=== PATIENT | female | born 1965 | race Caucasian/White ===

== ENCOUNTER 2016-06-22 16:49 | Emergency (ER) | payer OTHER ==
[2016-06-22 17:30] VITALS: BP 171/98
--- NOTE | 2016-06-22 19:09 | RAD ---
INDICATION: Back pain COMPARISON: None TECHNIQUE: Routine 2 view imaging was performed FINDINGS: Bones: There are no acute bony findings. There are no significant osteoarthritic findings. Alignment: There is moderate kyphosis Disc spaces: The disc spaces are well-maintained Soft tissues: There are no soft tissue abnormalities. IMPRESSION: NO ACUTE BONY FINDINGS.
--- NOTE | 2016-06-22 19:10 | RAD ---
INDICATION: Neck pain. Injury. COMPARISON: None TECHNIQUE: Routine five-view imaging was performed FINDINGS: Bones: There are no acute bony findings. There are no significant osteoarthritic findings. Craniocervical junction: The odontoid and atlantodental interval are normal. Alignment: Normal Disc spaces: The disc spaces are well-maintained Soft tissues: The prevertebral soft tissues are normal. IMPRESSION: NEGATIVE EXAMINATION.
--- NOTE | 2016-06-22 19:11 | RAD ---
INDICATION: Back pain. Injury. COMPARISON: None TECHNIQUE: Routine PA, lateral, and oblique imaging was performed . FINDINGS: Bones: There are no acute bony findings. There are arthritic changes consisting of endplate sclerosis and marginal osteophyte formation about the lower 3 lumbar levels. Alignment: There is lumbar spine straightening Disc spaces: Minor narrowing L4-L5. The remaining disc spaces are well-maintained. Soft tissues: There are no soft tissue abnormalities. IMPRESSION: MINOR OSTEOARTHRITIC CHANGE. NO ACUTE FINDINGS.
--- NOTE | 2016-08-05 09:19 | UC ---
Gordo Monk Matthew, scribed for Ashley Emery MD on 06/22/16 at 1755 . Shoulder Pain HPI - HPI Summary HPI Summary: A 51 y/o female presents to [facility] with left shoulder and back pain since a couple of hours ago. The pain is rated 5/10 in severity. The patient was riding a horse (approximately 4-5ft), when the stirrup broke and the patient rolled of off the horse landing on her left shoulder and back. She denies any head trauma or hematuria. The patient has full ROM of the shoulder. - History of Current Complaint Chief Complaint: UCBackPain Stated Complaint: FELL OFF HORSE Hx Obtained From: Patient Hx Last Menstrual Period: 01/15/12 ?: No Onset/Duration: Sudden Onset, Lasting Hours, Still Present Timing: Constant Severity Initially: Moderate Severity Currently: Moderate Location Of Pain: Is Discrete @ - LT shoulder and back Pain Intensity: 5 Pain Scale Used: 0-10 Numeric Associated Signs And Symptoms: Positive: Negative - Allergies/Home Medications Allergies/Adverse Reactions: Allergies Allergy/AdvReac Type Severity Reaction Status Date / Time Dust Mite Extract Allergy Intermediate Eyes Verified 02/07/12 08:23 Itchy/Swollen/Red/Watery Home Medications: Home Medications Ibuprofen [Advil] 200 mg PO 06/22/16 [History] PMH/Surg Hx/FS Hx/Imm Hx Endocrine History Of: Denies: Diabetes, Thyroid Disease Cardiovascular History Of: Denies: Cardiac Disorders, Hypertension Respiratory History Of: Denies: COPD, Asthma GI/ History Of: Denies: Ulcer - Surgical History Surgical History: Yes Surgery Procedure, Year, and Place: 08/19/00 - Tuabal ligation - Family History Known Family History: Positive: Cardiac Disease - Mother, Hypertension, Diabetes - Father - Social History Alcohol Use: None Substance Use Type: None Smoking Status (MU): Never Smoked Tobacco Review of Systems Constitutional: Negative Skin: Negative Eyes: Negative ENT: Negative Respiratory: Negative Cardiovascular: Negative Gastrointestinal: Negative Genitourinary: Negative Motor: Negative Neurovascular: Negative Musculoskeletal: Myalgia - Left shoulder and back pain Neurological: Negative Psychological: Negative All Other Systems Reviewed And Are Negative: Yes Physical Exam Triage Information Reviewed: Yes Appearance: Well-Nourished Vital Signs: Initial Vital Signs Temp 98.0 F 02/17/17 17:26 Pulse 114 06/22/16 17:26 Resp 18 06/22/16 17:26 BP 171/98 06/22/16 17:26 Pulse Ox 99 06/22/16 17:26 Vital Signs Reviewed: Yes Eye Exam: Normal ENT Exam: Normal Neck exam: Other - upper left and u Neck: Positive: No Lymphadenopathy Respiratory: Positive: Chest non-tender, Lungs clear, Normal breath sounds, No respiratory distress, No accessory muscle use Cardiovascular: Positive: RRR, No Murmur, Pulses Normal, Brisk Capillary Refill Abdominal Exam: Normal Bowel Sounds: Positive: Present Musculoskeletal Exam: Other - see above (neck) Neurological Exam: Normal - non-focal; grossly intact Psychological Exam: Normal Skin Exam: Normal Skin: Negative: rashes Diagnostics - Radiology Lumbar Spine XR Xray Interpretation: No Acute Changes - IMPRESSION: MINOR OSTEOARTHRITIC CHANGE. NO ACUTE FINDINGS. Radiology Interpretation Completed By: Radiologist Cervical Spine Xray Interpretation: No Acute Changes - IMPRESSION: NEGATIVE EXAMINATION. Radiology Interpretation Completed By: Radiologist Thoracic Spine XR Xray Interpretation: No Acute Changes - IMPRESSION: NO ACUTE BONY FINDINGS. Radiology Interpretation Completed By: Radiologist Re-Evaluation - Re-Evaluation First Eval Re-Evaluation Time: 19:32 Comment: The patient was informed of her imaging results and agrees with the treatment plan. Shoulder Course/Dx - Course Course Of Treatment: No new problems in CCC. Uncomfortable, but feels ready to go home. Reviewed xray reports with Ms. Reyes. Reviewed recommendation for f /u with pcp. Questions answered to the best of my ability. Rx re nsaid and muscle relaxer - Differential Dx/Diagnosis Provider Diagnoses: Acute cervical strain. Acute upper back strain. Low back strain. DJD - Physician Notification/Consults Discussed Patient Care With: Natali (Radiologist Tech) at 19:01 -- Asked to page the radiologist. Discharge - Discharge Plan Condition: Stable Disposition: HOME Prescriptions: Cyclobenzaprine TAB* [Flexeril TAB*] 10 mg PO TID PRN #12 tab PRN Reason: Spasms Naproxen [Naproxen 500 MG TABS] 500 mg PO BID #30 tab Patient Education Materials: Cervical Strain (ED), Osteoarthritis (ED), Low Back Strain (ED) Referrals: Mana Duffy MD [Primary Care Provider] - The documentation as recorded by the scribeGordo Matthew accurately reflects the service I personally performed and the decisions made by me, Ashley Emery MD.
== END 2016-06-22 19:56 | disposition home or self-care (01) ==
LOC: UCEAST 16:49
DX: S16.1XXA Strain of muscle, fascia and tendon at neck level, initial encounter (principal); S29.012A Strain of muscle and tendon of back wall of thorax, initial encounter; S39.012A Strain of muscle, fascia and tendon of lower back, initial encounter; V80.010A Animal-rider injured by fall from or being thrown from horse in noncollision accident, initial encounter; Y93.52 Activity, horseback riding; Y92.9 Unspecified place or not applicable; M19.90 Unspecified osteoarthritis, unspecified site; M47.816 Spondylosis without myelopathy or radiculopathy, lumbar region
CPT/HCPCS: 72050; 72070; 72110; 99202; G0463